=== PATIENT | male | born 1980 | race Caucasian/White ===

== ENCOUNTER 2017-07-29 17:37 | Inpatient (IN) | payer OTHER ==
[~2017-07-29] VITALS: Ht 180.3 cm; Wt 106.6 kg
--- NOTE | 2017-07-29 18:03 | ED INFLUENZA/URI COMPLAINT ---
History of Present Illness General Chief Complaint: Fever Stated Complaint: FEVER, CHILLS +N, X 4 DAY Source: patient, old records Exam Limitations: no limitations Vital Signs & Intake/Output Vital Signs & Intake/Output Vital Signs Date Time Temp Pulse Resp B/P B/P Pulse O2 O2 Flow FiO2 Mean Ox Delivery Rate 07/30 2343 102.7 100 16 07/29 2116 101.4 98 18 129/79 93 Room Air 07/29 2100 101.9 07/29 2029 100.9 07/29 2002 102.8 07/29 192 102.8 108 18 149/74 95 Room Air 07/29 185 Room Air 07/29 1853 97 07/29 175 102.7 99 15 133/93 95 Room Air Room Air Allergies Coded Allergies: Penicillins (UNKNOWN TOLD KID 07/29/17) Reconcile Medications Acetaminophen 500 MG TABLET 2 TAB PO Q2H PRN FEVER (Reported) Cetirizine HCl (Zyrtec) 10 MG TABLET 1 TAB PO DAILY ALLERGIES (Reported) Ibuprofen (Advil) 200 MG TABLET 2 TAB PO Q2H PRN FEVER (Reported) Triage Note: PT TO ED FOR C/C OF FEVERS NOT RELIEVED WITH TYLENOL AND MOTRIN. PT CAME BACK FROM [facility] ON THURSDAY AND FEVERS STARTED ON THURSDAY. PT UNSURE IF BIT BY ANY BUGS, BUT WAS RECENTLY IN [place] [facility]. DENIES SORE THROAT, ABD PAIN. REPORTS CHILLS, ACHES. WENT TO URGENT CARE YESTERDAY AND TESTED NEGATIVE FOR FLU. FEBRILE 102.7 IN TRIAGE. TAKEN TO ROOM 18 FROM TRIAGE. Triage Nurses Notes Reviewed? yes Onset: Abrupt Duration: day(s): (2), constant Timing: recent history Severity: moderate Severity Numbers: 6 Prior Episodes/Possible Cause: no prior episodes No Modifying Factors: none Associated Symptoms: cough HPI: 37-year-old male with no medical history presents to the ER for evaluation complaining of fevers chills as high as 105 for the past 2 days. He went to urgent care yesterday have blood work performed which she states was normal and was started on Tamiflu however is not taken it. He states he had a negative flu swab at that time. He does report to a nonproductive cough. The patient just returned from a cruise to [facility] 4 days ago. He was doing yard work outside her denies any known tick or insect bite. He states that the fevers have been breaking with Tylenol Motrin however they return. No sick contacts no nausea vomiting diarrhea abdominal pain urinary complaints rashes to the skin (Mark Jimenez) Past History Travel History Traveled to [place] past 21 day No Medical History Any Pertinent Medical History? 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 No (Mark Jimenez) Review of Systems Review of Systems Constitutional: Reports: see HPI, chills. Comments Review of systems: See HPI, All other systems negative. Constitutional, positive fever, no malaise no weight loss HEENT: no sore throat no congestion, no ear pain Cardiovascular: No chest pain , no palpitation Skin: no rashes, no change in skin Respiratory: No dyspnea positive cough no sputum no hemoptysis GI: No nausea no vomiting, no diarrhea, no bloating/constipation : No dysuria No hematuria, no frequency Muscle skeletal: No joint pain, no back pain, no neck pain, Neurologic: no headache Heme/endocrine: No bruising Immunology: No lymphadenopathy (Mark Jimenez) Physical Exam Physical Exam General Appearance: well developed/nourished, alert, awake Ears, Nose, Throat: normal ENT inspection Comments: Well-developed well-nourished patient in no apparent distress. Head/Face: Atraumatic, no maxillary/frontal sinus tenderness, no facial swelling Eyes: PERRL, EOMI, no conjunctival injection. No nystagmus Ear:External auditory canal and Tympanic membranes clear, no erythema, no FB. Nose: atraumatic.Normal inspection: No bleeding, no septal hematoma Throat: Moist mucous membranes.Pharynx normal. No pharyngeal erythema/exudate seen. No stridor/drooling or assymetry. No swelling or edema. Neck: Supple, no lymphadenopathy, FROM Back: FROM Cardiovascular: Regular rate and rhythms no murmur Respiratory: Chest nontender.There were no bony deformities, no asymmetry. No respiratory distress. Patient speaking in full complete sentences. Crackles right lung base Extremities: full range of motion Neuro: awake, alert, and oriented to person, place and time. There were no obvious focal neurologic abnormalities. Skin: Warm & dry;No appreciable rash on exposed skin Psych: Mood affect normal, normal memory normal judgment. Core Measures Sepsis Present: No Sepsis Focused Exam Completed? No (Matt GREENBERG,Mark) Progress Differential Diagnosis: influenza, pneumonia, pharyngitis, sinusitis, TICK BORN ILLNESS, TRAVELERS DIARRHEA, GASTROENTERITIS, BRONCHITIS Plan of Care: Orders Procedure Date/time Status Regular Diet 07/30 B Active CBC WITHOUT DIFFERENTIAL 07/30 599 Active BASIC ELECTROLYTES PLUS BUN&CR 07/30 599 Active TRC EVALUATION (GEN) 07/29 2344 Active Saline Lock 07/29 2344 Active Pathway - chart 07/29 2344 Active House Staff 07/29 2344 Active SPECIMEN TO BE OBTAINED 07/29 2344 Active Code Status 07/29 2344 Active URINE DRUGS OF ABUSE 07/29 231 Complete Patient Data 07/29 2299 Active Patient Data 07/29 2257 Active OXYGEN SETUP (GEN) 07/29 2124 Active Saline Lock 07/29 2124 Active Admit to inpatient 07/29 2124 Active Vital Signs 07/29 2124 Active Activity/Ambulation 07/29 2124 Active Code Status 07/29 2124 Complete Intake & Output 07/29 1854 Active CULTURE,URINE 07/30 1815 Active BLOOD CULTURE 07/30 1815 Active URINALYSIS 07/30 1815 Complete LYME TITRE 07/29 181 Active LACTIC ACID 07/29 181 Complete COMPREHENSIVE METABOLIC PANEL 07/29 181 Complete CBC WITHOUT DIFFERENTIAL 07/30 1815 Complete Lab Add-on Test 07/29 UNK Active VTE Mechanical Prophylaxis 07/29 UNK Active Vital Signs 07/29 UNK Active Intake & Output 07/29 UNK Active Activity/Ambulation 07/29 UNK Active Current Medications Sig/Tommie Start time Last Medication Dose Stop Time Status Admin Heparin Sodium 5,000 UNIT Q8 07/30 06 UNVr (Porcine) Acetaminophen 650 MG Q8P PRN 07/29 2344 UNVr (Tylenol) Azithromycin 500 MG ONCE ONE 07/29 2344 UNVr (Zithromax) 07/30 0044 Sodium Chloride 250 ML (Normal Saline 0.9%) Benzonatate 100 MG TID PRN 07/29 2344 UNVr (Tessalon Capsule) Ceftriaxone Sodium 1,000 MG ONCE ONE 07/29 2344 UNVr (Rocephin) 07/29 2345 Sodium Chloride 1,000 ML .Q10H 07/29 2344 UNVr (Normal Saline 0.9%) Sodium Chloride 1,000 ML ONCE ONE 07/29 2129 AC 07/29 (Normal Saline 0.9%) 07/30 Sodium Chloride 1,000 ML BOLUS ONE 07/29 2014 CAN (Normal Saline 0.9%) 07/29 2113 Laboratory Tests 07/29/172309: Urine Opiates Screen < 100, Methadone Screen < 40, Barbiturate Screen < 60, Ur Phencyclidine Scrn < 6.00, Amphetamines Screen < 100, U Benzodiazepines Scrn < 85, Urine Cocaine Screen < 50, Urine Cannabis Screen < 5.00, Urine Color YEL, Urine Clarity CLEAR, Urine pH 6.5, Ur Specific [place] 1.010, Urine Protein TRACE H, Urine Ketones TRACE H, Urine Nitrite NEG, Urine Bilirubin NEG, Urine Urobilinogen 0.2, Ur Leukocyte Esterase NEG, Ur Microscopic SEDIMENT EXAMINED, Urine RBC RARE, Urine WBC RARE, Ur Epithelial Cells RARE, Urine Mucus RARE, Urine Hemoglobin NEG, Urine Glucose NEG 07/29/172115: Lactic Acid Cancelled 07/29/171834: Anion Gap 12, Estimated GFR > 60, BUN/Creatinine Ratio 6.9 L, Glucose 112 H, Lactic Acid 1.7, Calcium 8.5, Total Bilirubin 0.6, AST 38, ALT 42, Alkaline Phosphatase 63, Total Protein 6.9, Albumin 4.0, Globulin 2.9, Albumin/Globulin Ratio 1.4, CBC w Diff NO MAN DIFF REQ, RBC 4.78, MCV 86.1, MCH 29.8, MCHC 34.6, RDW 13.1, MPV 10.6 H, Gran % 79.8 H, Lymphocytes % 8.2 L, Monocytes % 11.9 H , Eosinophils % 0.1, Basophils % 0, Absolute Granulocytes 4.3, Absolute Lymphocytes 0.4 L, Absolute Monocytes 0.6, Absolute Eosinophils 0, Absolute Basophils 0, Lyme Disease Antibody Pending Microbiology 07/29 2309 URINE ROUT: Urine Culture - RECD 07/29 1849 BLOOD: Blood Culture - RECD 07/29 1834 BLOOD: Blood Culture - RECD Labs ordered old records reviewed patient medicated with Toradol IV IV fluids. IV Tylenol azithromycin ordered discussed with patient his x-ray findings pending labs. Diagnostic Imaging: Viewed by Me: Radiology Read. Discussed w/RAD: Radiology Read. Radiology Impression: PATIENT: NIKO GUO PRESENT AGE: 37 PATIENT ACCOUNT NO: [id number] : 81 LOCATION: [facility] ORDERING PHYSICIAN: Mark GREENBERG SERVICE DATE: 07/29/17 EXAM TYPE: RAD - XRY- CHEST XRAY, TWO VIEWS EXAMINATION: XR CHEST CLINICAL INFORMATION: Cough, fever COMPARISON: None TECHNIQUE: 2 views of the chest were obtained. FINDINGS: There is right lower lobe airspace opacity consistent with pneumonia. Left lung and pleural spaces are clear. There is an azygos lobe and fissure incidentally noted. Normal heart size. Regional skeleton intact. IMPRESSION: Right lower lobe airspace opacity consistent with pneumonia. Recommend follow-up after treatment to confirm resolution. DICTATED BY: Niko Gracia MD DATE/TIME DICTATED:07/29 QUALITY ASSURANCE PRACTICE MANAGER:TORRI DATE/TIME TRANSCRIBED:07/29/171829 CONFIDENTIAL, DO NOT COPY WITHOUT APPROPRIATE AUTHORIZATION. <Electronically signed in Other Vendor System> SIGNED BY: Niko Gracia MD 07/29/171835 Initial ED EKG: none (Matt GREENBERG,Mark) Departure Departure Time of Disposition: 2127 Disposition: STILL A PATIENT Condition: Stable Clinical Impression Primary Impression: Pneumonia Secondary Impressions: Hypoxia Referrals: Santa BEAN,Eusebia James Additional Instructions: Levaquin as directed. Guaifensin with codeine for cough- this may make you drowsy. no driving or drinking alcohol while taking. Follow-up with primary care physician as discussed interchange Tylenol Motrin as you've been doing every 4 hours. Drink plenty of fluids rest. Return to the ER if fevers persist despite medication, your symptoms worsen or have any other concerns Departure Forms: Customer Survey General Discharge Information Admission Note Spoke With: Arturo BEAN,Johnchetan Documentation of Exam: Documentation of any treatments & extenuating circumstances including Concerns Regarding Discharge (functional status, medication knowledge or non-compliance, living conditions, etc.) that warrant an admission rather than observation: [ Patient desaturated with ambulation IV antibiotics GEN labs during cultures premature discharge medically harmful (Matt GREENBERG,Mark) PA/GRADUATE FELLOW Co-Sign Statement Statement: ED Attending supervision documentation- x I saw and evaluated the patient. I have also reviewed all the pertinent lab results and diagnostic results. I agree with the findings and the plan of care as documented in the PA's/GRADUATE FELLOW's documentation. Fever, SOB, hypoxia with pneumonia [] I have reviewed the ED Record and agree with the PA's/GRADUATE FELLOW's documentation. [] Additions or exceptions (if any) to the PAs/GRADUATE FELLOW's note and plan are summarized below: [] (Lisa BEAN,Gaurav)
--- NOTE | 2017-07-29 18:36 | RADIOLOGY REPORT ---
EXAMINATION: XR CHEST CLINICAL INFORMATION: Cough, fever COMPARISON: None TECHNIQUE: 2 views of the chest were obtained. FINDINGS: There is right lower lobe airspace opacity consistent with pneumonia. Left lung and pleural spaces are clear. There is an azygos lobe and fissure incidentally noted. Normal heart size. Regional skeleton intact. IMPRESSION: Right lower lobe airspace opacity consistent with pneumonia. Recommend follow-up after treatment to confirm resolution.
[2017-07-29 19:02] LABS: ABSOLUTE BASOPHIL COUNT 0 /CUMM (0.0-0.2); ABSOLUTE EOSINOPHIL COUNT 0 /CUMM (0.0-0.7); ABSOLUTE GRANULOCYTE CT 4.3 /CUMM (1.4-6.5); ABSOLUTE LYMPH COUNT 0.4 /CUMM (1.2-3.4); ABSOLUTE MONOCYTE COUNT 0.6 /CUMM (0.10-0.60); BASOPHIL % 0 % (0.0-2.0); EOSINOPHIL % 0.1 % (0-5); GRANULOCYTE % 79.8 % (42.2-75.2); HEMATOCRIT 41.1 % (42-52); MEAN CORPUSCULAR HGB 29.8 PG (27.0-31.0); MEAN CORPUSCULAR HGB CONC 34.6 G/DL (33.0-37.0); MEAN CORPUSCULAR VOLUME 86.1 FL (80.0-94.0); MEAN PLATELET VOLUME 10.6 FL (7.4-10.4); PLATELET COUNT 137 /CUMM (130-400); RBC DISTRIBUTION WIDTH 13.1 % (11.5-14.5); RED BLOOD CELL CT 4.78 /CUMM (4.70-6.10); WHITE BLOOD CELL COUNT 5.4 /CUMM (4.8-10.8)
[2017-07-29] MEDS ORDERED: ACETAMINOPHEN500 M4 PO (21:43)
[2017-07-29] MEDS ORDERED: ZYRTEC10 M3 PO (21:43)
[2017-07-29] MEDS ORDERED: ADVIL200 M2 PO (21:44)
--- NOTE | 2017-07-29 22:43 | History & Physical ---
Maryellen Abbott 07/29/17 2242: General Information and HPI MD Statement: I have seen and personally examined JERAD GUO and documented this H&P. The patient is a 37 year old M who presented with a patient stated chief complaint of [fever]. Source of Information: patient, old records Exam Limitations: no limitations History of Present Illness: Mr. Guo is a 37yo M w/ no PMH presented to ER with fever/chills with T-max 105 starting Thursday, along with body aches, and productive cough of brownish sputum. Patient was seen in urgent care yesterday with normal blood work, and was given Tamiflu, however he did not take it. Patient stated his flu swab was negative at the urgent care. Patient also endorsed nonproductive cough, and he just returned from a cruise to [place] 4 days ago. Patient was doing yard work outside however denied any tick/insect bites. Patient try Tylenol/Motrin over the past 4 days to take the fever away, however not effective with recurring fever/chills. Patient denies any sick contacts and stated the trip was uneventful and nobody else was sick like him. He endorsed some SOB starting yesterday as well. Patient had no past medical history, and rarely sees doctors. Patient does not have any PCP. During our clinical interaction, patient denied lightheadedness/diaphoresis/ night sweat/weight change/Chest Pain/Palpitation/Abdominal pain/bowel movement or urinary abnormality, or other skin/musculoskeletal/neurological/mood disorders, or dietary/appetite change. -Smoking: never -Alcohol: social -Rec Drugs: never Allergies/Medications Allergies: Coded Allergies: Penicillins (UNKNOWN TOLD KID 07/29/17) Home Med list Acetaminophen 500 MG TABLET 2 TAB PO Q2H PRN FEVER (Reported) Cetirizine HCl (Zyrtec) 10 MG TABLET 1 TAB PO DAILY ALLERGIES (Reported) Ibuprofen (Advil) 200 MG TABLET 2 TAB PO Q2H PRN FEVER (Reported) Past History Travel History Traveled to [place] past 21 day No Medical History Neurological: NONE EENT: NONE Cardiovascular: NONE Respiratory: NONE Gastrointestinal: NONE Hepatic: NONE Renal: NONE Musculoskeletal: NONE Psychiatric: NONE Endocrine: NONE Blood Disorders: NONE Cancer(s): NONE 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 Exam & Diagnostic Data Last 24 Hrs of Vital Signs/I&O Vital Signs Date Time Temp Pulse Resp B/P B/P Pulse O2 O2 Flow FiO2 Mean Ox Delivery Rate 07/29 2116 101.4 98 18 129/79 93 Room Air 07/29 2100 101.9 07/29 2029 100.9 07/29 2002 102.8 07/29 1921 102.8 108 18 149/74 95 Room Air 07/29 1853 Room Air 07/29 1853 97 07/29 175 102.7 99 15 133/93 95 Room Air Room Air Physical Exam General Appearance Alert, Oriented X3, Cooperative, No Acute Distress Skin No Rashes, No Breakdown, No Significant Lesion Skin Temp/Moisture Exam: Warm/Dry Sepsis Skin Exam (color): Normal for Ethnicity HEENT Atraumatic, PERRLA Neck Supple, No JVD Lymphatic Axillary nl, Cervical nl Cardiovascular Normal S1, Normal S2, tachycardia Lungs diminished lung sound on R lung base,otherwise clear Abdomen Normal Bowel Sounds, Soft, No Tenderness Neurological Normal Speech, Strength at 5/5 X4 Ext Extremities No Edema, Normal Pulses Last 24 Hrs of Labs/Brett: Laboratory Tests 07/29/172115: Lactic Acid Cancelled 07/29/171834: Anion Gap 12, Estimated GFR > 60, BUN/Creatinine Ratio 6.9 L, Glucose 112 H, Lactic Acid 1.7, Calcium 8.5, Total Bilirubin 0.6, AST 38, ALT 42, Alkaline Phosphatase 63, Total Protein 6.9, Albumin 4.0, Globulin 2.9, Albumin/Globulin Ratio 1.4, CBC w Diff NO MAN DIFF REQ, RBC 4.78, MCV 86.1, MCH 29.8, MCHC 34.6, RDW 13.1, MPV 10.6 H, Gran % 79.8 H, Lymphocytes % 8.2 L, Monocytes % 11.9 H , Eosinophils % 0.1, Basophils % 0, Absolute Granulocytes 4.3, Absolute Lymphocytes 0.4 L, Absolute Monocytes 0.6, Absolute Eosinophils 0, Absolute Basophils 0, Lyme Disease Antibody Pending Microbiology 07/29 1849 BLOOD: Blood Culture - RECD 07/29 1834 BLOOD: Blood Culture - RECD 07/30 1815 URINE ROUT: Urine Culture - ORD Assessment/Plan Assessment: On admission, -CBC: No leukocytosis, granulocytes 79.8%, no bandemia -BMP: Unremarkable except creatinine 1.3, with a previous baseline. -CXR: Right lower lobe airspace opacity consistent with pneumonia. -EKG: NSR w/o significant ST-T abnormalities. -Interventions in ER: IV fluids 2 L, Toradol, acetaminophen IV 1, azithromycin Problem list & Assessment: #Sepsis 2/2 Community-acquired pneumonia (Tachycardia, Fever, Source of Infection) #CHRIS secondary to dehydration Hospital Course: - Admit to general medicine floor pneumonia. Patient has ongoing allergy to penicillin from childhood, without any known rash/anaphylactic/shortness of breath. Patient's memory. We will closely monitor use of ceftriaxone during treatment course. including Toradol. possible Legionella pending rule out) DVT prophylaxis Heparin + ALPS Regular Diet Full Code As Ranked By This Provider Problem List: 1. Pneumonia 2. Hypoxia Core Measures/Misc (11/23) Acute Coronary Syndrome ACS Diagnosis: No Congestive Heart Failure Congestive Heart Failure Diagnosis No Cerebrovascular Accident CVA/TIA Diagnosis: No VTE (View Protocol) VTE Risk Factors Age>40 No Mechanical VTE Prophylaxis d/t N/A MechProphylax Ordered No VTE Pharm Prophylaxis d/t NA PharmProphylax ordered Sepsis (View protocol) Sepsis Present: Yes If YES complete Sepsis Event Note If YES complete Sepsis Event Note Mo [address] 07/29/17 4051: Core Measures/Misc (11/23) Sepsis (View protocol) If YES complete Sepsis Event Note If YES complete Sepsis Event Note Resident Review Statement Resident Statement: examined this patient, discussed with validation intern Other Findings: Mr Guo is a 37 M w/ a no significant PMHx came to the ER w/ a chief concern of fever. He went to [place] on a cruise ship for a total of 7 days and returned approximately 1 week ago. The trip was uneventful, and did not have any nausea vomiting or diarrhea. Did not report any fever, signs of any infection. A few days after he returned, approximately 6 days ago, he developed fever of 103 associated with myalgias. He also reported chills and productive cough that began 1 day after he developed chills. He has been taking Tylenol around the clock, and did not attribute any particular pattern to these chills. Did not have any joint pains, rash, pedal edema. No abdominal pain, diarrhea, jaundice or vomiting noted. No dysuria. No dyspnea, palpitations or chest pain noted. He works at [employer], and does not have any history of intravenous drug use. No pertinent family history reported. At the time of admission, temp 102.7, VT 99, RR 15, BP 133/93, 95% on room air. He continued to be febrile while he was in the ED. While he ambulated, his oxygen saturations dropped to 86%. General Exam: AAOx3, No acute distress, Skin: No rashes, no breakdown;HEENT: PERRLA, EOMI;Neck: Supple, No JVD; No cervical lymphadenopathy;CVS: Reg Rate, Normal S1,S2, No MGR;Resp: Decreased air entry on the right side, no ronchi/ rales;Abdomen: Soft, No tenderness, Normal Bowel Sounds;Neuro: Normal Speech, Strength 5/5 b/l x 4 extremities, Sensation intact, CN III-XII NL, Reflexes 2+; Extremities: No cyanosis, no pedal edema. Pertinent lab findings: WBC 5.4, hemoglobin 14.2, platelets 137, sodium 141, potassium 4.1, anion gap 12, BUN 9, creatinine 1.3 (likely a TIA), lactic acid 1.7, liver function-AST 38, ALT 42, alkaline phosphatase 63, urinalysis revealed trace urine protein, trace ketones, urine lites pending. Urine toxicology negative. Chest x-ray revealed- Right lower lobe airspace opacity consistent with pneumonia. Recommend follow-up after treatment to confirm resolution. Etiology in his case with signs of infection- tachycardia, fever with possible source being lung-sepsis could be considered. He likely has community-acquired pneumonia. His travels to [place], could point towards atypical pneumonia, but community acquired pneumonia seems more likely in this case. He should be treated with ceftriaxone and azithromycin to cover for usual microbes. In the event he continues to be febrile, and has cultures growing other microbes- antibiotic should be tailored. In regards to his acute kidney injury, he has elevated serum creatinine, but normal or slightly less than normal BUN, which could be due to things-decreased by mouth intake, and or rhabdomyolysis, acute kidney injury from dehydration seems more likely in this case. Problem list: #1 community acquired pneumonia #2 acute kidney injury #3 sepsis Plan: #1 community acquired pneumonia-he should be treated with ceftriaxone and azithromycin. Follow lower respiratory cultures, blood cultures. Check urine Legionella and strep antigen. #2 acute kidney injury- Check urine lites Fluid resuscitation at this time. NS @100ml/hr. Recheck kidney function in the a.m. He was given NSAID in the ER, which should be avoided for now. No NSAIDS. If the kidney function does not improve, would likely have to get ultrasound kidney. Housekeeping: #1 DVT prophylaxis-subcutaneous heparin, Alps. #2 diet-regular diet. #3 full code. Consults-none. Arturo BEAN, [facility] 07/30/17 0209: Core Measures/Misc (11/23) Sepsis (View protocol) If YES complete Sepsis Event Note If YES complete Sepsis Event Note Attending MD Review Statement Attending Statement Attending MD Statement: examined this patient, discuss w/resident/PA/SHOE COVERER, agreed w/resident/PA/SHOE COVERER, discussed with family, reviewed images, amended to note Attending Assessment/Plan: 37 yo M with h/o seasonal allergies, who returned one week ago from a 5-day cruise trip to [place], is here for evaluation of persistent fever. Patient started developing high grade fevers (up to 104) two days after returning from the cruise trip. He was seen at a [facility], tested negative on flu swab and was prescribed Tamiflu which he did not take. He was taking tylenol round the clock. He felt better in between and reports doing yard work over the weekend. At that point, his right hand middle finger swelled up without any evidence of tick or insect bite. This resolved in 2 days. He reports chills, myalgias, nausea and poor appetite, but no vomiting or diarrhea. One day prior to admission, he developed a cough productive of yellow-brown phlegm. Today, he was reported to have a fever of 104, hence brought him to the ER. Vitals: Tmax 103.1, HR 90-100's, BP 129/79, sats 93% RA. On ambulation, he dropped his sats to 86% on RA. Exam: AAO, ill-appearing male, skin warm and dry, capillary refill ~ 2 secs, dry mucous membranes, Chest reduced air entry at right base, no rhonchi or crackles, otherwise benign exam. No obvious skin rash. Labs: no leukocytosis, creat 1.3 (no baseline), BUN 9, glucose 112, lactic acid 1.7, UA and urine tox negative. CXR: right lower lobe airspace opacity consistent with pneumonia. Assessment and plan: 1. Acute hypoxic respiratory failure 2. Sepsis 3. Right lower lobe pneumonia community acquired 4. CHRIS likely pre-renal 5. Seasonal allergies - Admit to General medicine - Panculture - Urine legionella and strep Ag - IV ceftriaxone and azithro - TRC nebs - IV hydration, trend lactic acid - Add robitussin PRN for cough - Trend renal functions, check CK - Lyme titers pending - Consider ID consult if persistent fevers - Recheck ambulatory O2 sats prior to discharge DVT ppx Hep SC. Full code.
--- NOTE | 2017-07-29 23:19 | Admission Certification ---
Admission Certification Certification Statement - As attending physician, I certify that at the time of - admission, based on clinical presentation, severity of - symptoms, need for further diagnostic testing and - therapeutic interventions, and risk of adverse outcomes - without in-hospital treatment, in my clinical assessment, - this patient requires an acute hospital stay for a minimum - of two nights or longer. I have also considered psychsocial - factors such as support system, advanced age, financial - issues, cognitive issues, and failed out-patient treatments, - past re-admission history, safety of patient, and lack of - compliance as applicable. Specific rationale supporting this admission is: Acute hypoxic respiratory failure, sepsis, right lower lobe pneumonia.
[2017-07-30 01:40] VITALS: BP 168/82
[2017-07-30 06:01] VITALS: BP 144/76
--- NOTE | 2017-07-30 09:10 | PN- Housestaff ---
Subjective Follow-up For: pneumonia Subjective: Patient seen and examined. He denies any diaphoresis, chills but does admit to doing feverish. He denies any cough, sore throat, myalgias, joint pains, shortness of breath, chest pain, abdominal pain, diarrhea, nausea, vomiting. Review of Systems Constitutional: Reports: fever. EENTM: Reports: no symptoms. Cardiovascular: Reports: no symptoms. Respiratory: Reports: no symptoms. Gastrointestinal: Reports: no symptoms. Genitourinary: Reports: no symptoms. Musculoskeletal: Reports: no symptoms. Skin: Reports: no symptoms. Neurological/Psychological: Reports: no symptoms. Objective Last 24 Hrs of Vital Signs/I&O Vital Signs Date Time Temp Pulse Resp B/P B/P Pulse O2 O2 Flow FiO2 Mean Ox Delivery Rate 07/30 1702 98.2 07/30 1538 Room Air 07/30 1453 99.1 07/30 1434 99.0 100 20 120/70 93 Room Air 07/30 1256 99.0 07/30 1157 101.7 07/30 1136 101.7 07/30 1052 101.7 07/30 1044 103.0 07/30 0953 103.0 07/30 0914 Room Air 07/30 0805 102.4 07/30 0805 102.4 07/30 0800 Room Air 07/30 0710 102.5 07/30 0601 103.8 99 18 144/76 93 Room Air 07/30 0352 102.2 07/30 0250 102.2 07/30 0151 103.1 07/30 0140 103.1 100 20 168/82 94 Room Air 07/30 0132 94 Nasal Cannula 07/29 2344 102.7 100 16 07/29 2117 101.4 98 18 129/79 93 Room Air 07/29 2101 101.9 07/29 2030 100.9 07/29 2003 102.8 07/29 1922 102.8 108 18 149/74 95 Room Air 07/29 1854 Room Air 07/29 1854 97 Intake & Output 07/30 1600 07/30 0800 07/30 0000 Intake Total 1280 1750 3730 Output Total 550 Balance 1280 1200 3730 Intake, IV 413 800 2047 Intake, Oral 480 1200 480 Number 0 Bowel Movements Output, Urine 550 Patient 230 lb 230 lb Weight Weight Reported by Patient Reported by Patient Measurement Method Physical Exam General Appearance: Alert, Oriented X3, Cooperative, No Acute Distress Skin: No Rashes, No Breakdown, No Significant Lesion Skin Temp/Moisture Exam: Warm/Dry Sepsis Skin Exam (color): Normal for Ethnicity HEENT: Atraumatic, PERRLA, EOMI, Mucous Membr. moist/pink Cardiovascular: Regular Rate, Normal S1, Normal S2, No Murmurs Lungs: Clear to Auscultation, Normal Air Movement Abdomen: Normal Bowel Sounds, Soft, No Tenderness Neurological: Normal Gait, Normal Speech Extremities: No Clubbing, No Cyanosis, No Edema, Normal Pulses Vascular: Normal Pulses, Pulses Symmetrical Current Medications: Current Medications Sig/Tommie Start time Last Medication Dose Route Stop Time Status Admin Acetaminophen 650 MG .STK-MED ONE 07/30 0949 DC PO 07/30 0950 Acetaminophen 650 MG .STK-MED ONE 07/30 0150 DC PO 07/30 0151 Acetaminophen 650 MG Q8P PRN 07/29 2345 AC 07/30 PO 0953 Acetaminophen 0 .STK-MED ONE 07/29 1936 DC IV Acetaminophen 1,000 MG ONCE ONE 07/29 1930 DC 07/29 N/A 1 UNIT IV 07/29 1942002 Azithromycin 500 MG 07/30 2000 AC Sodium Chloride 250 ML IV Azithromycin 500 MG ONCE ONE 07/29 2345 CAN Sodium Chloride 250 ML IV 07/30 0044 Azithromycin 500 MG ONCE ONE 07/29 1900 DC 07/29 Sodium Chloride 250 ML IV 07/29 1959 2009 Benzonatate 100 MG TID PRN 07/29 2345 DC PO 08/01 2344 Ceftriaxone Sodium 1,000 MG 2300 07/30 2300 AC IV Ceftriaxone Sodium 0 .STK-MED ONE 07/30 0004 DC .ROUTE Ceftriaxone Sodium 1,000 MG ONCE ONE 07/29 2345 DC 07/29 IV 07/29 2346 2359 Guaifenesin 10 ML Q6P PRN 07/30 0445 AC PO Heparin Sodium 5,000 UNIT Q8 07/30 0600 AC (Porcine) SC Ibuprofen 600 MG Q6P PRN 07/30 1130 AC PO Ibuprofen 600 MG ONCE ONE 07/30 1015 DC 07/30 PO 07/30 1016 1157 Ketorolac 0 .STK-MED ONE 07/29 1906 DC Tromethamine .ROUTE Ketorolac 30 MG ONCE ONE 07/29 1830 DC 07/29 Tromethamine IV 07/29 1831 1858 Sodium Chloride 1,000 ML .Q10H 07/29 2345 AC 07/30 IV 0435 Sodium Chloride 1,000 ML ONCE ONE 07/29 2130 DC 07/29 IV 07/30 0409 2200 Sodium Chloride 1,000 ML BOLUS ONE 07/29 2015 CAN IV 07/29 2114 Sodium Chloride 1,000 ML BOLUS ONE 07/29 1830 DC 07/29 IV 07/29 192 1858 Sodium Chloride 1,000 ML BOLUS ONE 07/29 1830 DC 07/29 IV 07/29 192 185 Tuberculin PPD 0.1 ML ONCE ONE 07/30 0745 DC 07/30 ID 07/30 0746 1014 Last 24 Hrs of Lab/Brett Results Last 24 Hrs of Labs/Mics: Laboratory Tests 07/30/17 1740: PT Pending, INR Pending, APTT Pending, Fibrinogen Activity Pending, D-Dimer High Sensitivty Pending, HIV 1&2 Ab Western Blot Pending 07/30/17 0604: Anion Gap 11, Estimated GFR > 60, BUN/Creatinine Ratio 5.8 L, CBC w Diff NO MAN DIFF REQ, RBC 3.96 L, MCV 85.5, MCH 30.0, MCHC 35.1, RDW 12.9, MPV 11.1 H, Gran % 69.7, Lymphocytes % 14.6 L, Monocytes % 15.5 H, Eosinophils % 0, Basophils % 0.2, Absolute Granulocytes 3.6, Absolute Lymphocytes 0.7 L, Absolute Monocytes 0.8 H, Absolute Eosinophils 0, Absolute Basophils 0 07/29/17 2310: Urine Color YEL, Urine Clarity CLEAR, Urine pH 6.5, Ur Specific [place] 1.010, Urine Protein TRACE H, Urine Ketones TRACE H, Urine Nitrite NEG, Urine Bilirubin NEG, Urine Urobilinogen 0.2, Ur Leukocyte Esterase NEG, Ur Microscopic SEDIMENT EXAMINED, Urine RBC RARE, Urine WBC RARE, Ur Epithelial Cells RARE, Urine Mucus RARE, Urine Hemoglobin NEG, Urine Glucose NEG 07/29/17 2310: Urine Opiates Screen < 100, Methadone Screen < 40, Barbiturate Screen < 60, Ur Phencyclidine Scrn < 6.00, Amphetamines Screen < 100, U Benzodiazepines Scrn < 85, Urine Cocaine Screen < 50, Urine Cannabis Screen < 5.00, Ur Random Creatinine 125.7, Ur Random Sodium 25 L, Ur Random Potassium 21.9, Fraction Sodium Excret 0.2 07/29/172115: Lactic Acid Cancelled 07/29/171834: Anion Gap 12, Estimated GFR > 60, BUN/Creatinine Ratio 6.9 L, Glucose 112 H, Lactic Acid 1.7, Calcium 8.5, Total Bilirubin 0.6, AST 38, ALT 42, Alkaline Phosphatase 63, Creatine Kinase 95, Total Protein 6.9, Albumin 4.0, Globulin 2.9 , Albumin/Globulin Ratio 1.4, CBC w Diff NO MAN DIFF REQ, RBC 4.78, MCV 86.1, MCH 29.8, MCHC 34.6, RDW 13.1, MPV 10.6 H, Gran % 79.8 H, Lymphocytes % 8.2 L , Monocytes % 11.9 H, Eosinophils % 0.1, Basophils % 0, Absolute Granulocytes 4.3, Absolute Lymphocytes 0.4 L, Absolute Monocytes 0.6, Absolute Eosinophils 0 , Absolute Basophils 0, Lyme Disease Antibody 0.27 Microbiology 07/30 734 LOWER RESP: AFB Culture with PCR Identification - COLB 07/30 734 LOWER RESP: AFB Culture with PCR Identification - COLB 07/30 734 LOWER RESP: AFB Culture with PCR Identification - COLB 07/30 734 LOWER RESP: AFB Smear Concentration - COLB 07/29 2309 URINE ROUT: Legionella Antigen - COMP 07/29 2309 URINE ROUT: Streptococcus pneumoniae Antigen (M - COMP 07/29 2309 URINE ROUT: Urine Culture - RES 07/29 1849 BLOOD: Blood Culture - RES 07/29 1834 BLOOD: Blood Culture - RES Assessment/Plan Assessment: Mr. Rios is a 37yo M w/ no PMH presented to ER with fever/chills with T-max 105 starting Thursday, along with body aches, and productive cough of brownish sputum. Patient was seen in urgent care yesterday with normal blood work, and was given Tamiflu, however he did not take it. Patient stated his flu swab was negative at the urgent care. Patient also endorsed nonproductive cough, and he just returned from a cruise to [facility] 4 days ago. Patient was doing yard work outside however denied any tick/insect bites. Patient try Tylenol/Motrin over the past 4 days to take the fever away, however not effective with recurring fever/chills. Patient denies any sick contacts and stated the trip was uneventful and nobody else was sick like him. He endorsed some SOB starting yesterday as well. Patient had no past medical history. Patient does not have any PCP. On admission, -CBC: No leukocytosis, granulocytes 79.8%, no bandemia -BMP: Unremarkable except creatinine 1.3, with a previous baseline. -CXR: Right lower lobe airspace opacity consistent with pneumonia. -EKG: NSR w/o significant ST-T abnormalities. -Interventions in ER: IV fluids 2 L, Toradol, acetaminophen IV 1, azithromycin Problem list & Assessment: #Sepsis 2/2 Community-acquired pneumonia (Tachycardia, Fever TODAY 103, Source of Infection) #CHRIS secondary to dehydration -thrombocytopenia Hospital Course: - Admit to general medicine floor pneumonia. Patient has ongoing allergy to penicillin from childhood, without any known rash/anaphylactic/shortness of breath. Patient's memory. We will closely monitor use of ceftriaxone during treatment course. -hiv test as well as TB for his continued fever, history of travel (although not to endemic area for TB). Patient denies any sexual partners other than . patient does not exhibit typical features of dengue or chickenguya -We will also send coags and dic panel for thrombocytopenia. TODAY FOR FEVER WITH RESULTING 99.1 TEMP. DVT prophylaxis Heparin + ALPS Regular Diet Full Code Problem List: 1. Pneumonia Pain Ratin Pain Location: na Pain Goal: Remain pain free Pain Plan: prn Tomorrow's Labs & Rationales: bep cbc
[2017-07-30 09:26] LABS: ABSOLUTE BASOPHIL COUNT 0 /CUMM (0.0-0.2); ABSOLUTE EOSINOPHIL COUNT 0 /CUMM (0.0-0.7); ABSOLUTE GRANULOCYTE CT 3.6 /CUMM (1.4-6.5); ABSOLUTE LYMPH COUNT 0.7 /CUMM (1.2-3.4); ABSOLUTE MONOCYTE COUNT 0.8 /CUMM (0.10-0.60); BASOPHIL % 0.2 % (0.0-2.0); EOSINOPHIL % 0 % (0-5); GRANULOCYTE % 69.7 % (42.2-75.2); MEAN CORPUSCULAR HGB CONC 35.1 G/DL (33.0-37.0); MEAN CORPUSCULAR VOLUME 85.5 FL (80.0-94.0); MEAN PLATELET VOLUME 11.1 FL (7.4-10.4); PLATELET COUNT 127 /CUMM (130-400); RBC DISTRIBUTION WIDTH 12.9 % (11.5-14.5); RED BLOOD CELL CT 3.96 /CUMM (4.70-6.10); WHITE BLOOD CELL COUNT 5.1 /CUMM (4.8-10.8)
[2017-07-30 10:37] LABS: HEMATOCRIT 33.9 % (42-52)
--- NOTE | 2017-07-30 12:18 | PN- Att Addend ---
Attending Addendum Attending Brief Note Patient seen and examined. Plan of care discussed with the medical team and the patient. Available lab work and radiology test reports were reviewed. Patient' s is having persistent fever up to 103. He otherwise appears comfortable and denies any chills chest pain or hemoptysis. Denies any skin rash or joint pains. History was reviewed with the patient and his Exam: General: Patient awake alert oriented without any distress CVS: S1 plus S2 without any murmur or gallops Chest: Bronchial breathing at the left base , Few scattered crepitation without any wheeze. There is no respiratory distress. 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 without any focal neuro deficit and follows commands appropriately Extremities: No edema; no clubbing or cyanosis noted; no skin rash noted and no joint inflammation noted Assessment * Community-acquired pneumonia - deferential included viral pneumonia versus bacterial; * Persistent fever- patient does not exhibit typical features of dengue or chickenguya * Thrombocytopenia * Acute renal failure Plan * Recheck CBC tomorrow * Await culture reports * Continue ceftriaxone and azithromycin * Check coags and DIC panel * check HIV status Current Medications Sig/Tommie Start time Last Medication Dose Route Stop Time Status Admin Acetaminophen 650 MG .STK-MED ONE 07/30 0150 DC PO 07/30 0151 Acetaminophen 650 MG Q8P PRN 07/29 2345 AC 07/30 PO 0953 Acetaminophen 0 .STK-MED ONE 07/29 1936 DC IV Acetaminophen 1,000 MG ONCE ONE 07/29 1930 DC 07/29 N/A 1 UNIT IV 07/29 1944 2002 Azithromycin 500 MG 07/30 2000 AC Sodium Chloride 250 ML IV Azithromycin 500 MG ONCE ONE 07/29 2345 CAN Sodium Chloride 250 ML IV 07/30 0044 Azithromycin 500 MG ONCE ONE 07/29 1900 DC 07/29 Sodium Chloride 250 ML IV 07/29 1959 2010 Benzonatate 100 MG TID PRN 07/29 2345 DC PO 08/01 2344 Ceftriaxone Sodium 1,000 MG 2300 07/30 2300 AC IV Ceftriaxone Sodium 0 .STK-MED ONE 07/30 0004 DC .ROUTE Ceftriaxone Sodium 1,000 MG ONCE ONE 07/29 2345 DC 07/29 IV 07/29 2346 2359 Guaifenesin 10 ML Q6P PRN 07/30 0445 AC PO Heparin Sodium 5,000 UNIT Q8 07/30 0600 AC (Porcine) SC Ibuprofen 600 MG Q6P PRN 07/30 1130 AC PO Ibuprofen 600 MG ONCE ONE 07/30 1015 DC 07/30 PO 07/30 1016 1157 Ketorolac 0 .STK-MED ONE 07/29 1906 DC Tromethamine .ROUTE Ketorolac 30 MG ONCE ONE 07/29 1830 DC 07/29 Tromethamine IV 07/29 1831 1858 Sodium Chloride 1,000 ML .Q10H 07/29 2345 AC 07/30 IV 0435 Sodium Chloride 1,000 ML ONCE ONE 07/29 2130 DC 07/29 IV 07/30 0409 2200 Sodium Chloride 1,000 ML BOLUS ONE 07/29 2015 CAN IV 07/29 2114 Sodium Chloride 1,000 ML BOLUS ONE 07/29 1830 DC 07/29 IV 07/29 1929 1858 Sodium Chloride 1,000 ML BOLUS ONE 07/29 1830 DC 07/29 IV 07/29 1929 1858 Tuberculin PPD 0.1 ML ONCE ONE 07/30 0745 DC 07/30 ID 07/30 0746 1014 Laboratory Tests 07/30/17 0604: Anion Gap 11, Estimated GFR > 60, BUN/Creatinine Ratio 5.8 L, CBC w Diff NO MAN DIFF REQ, RBC 3.96 L, MCV 85.5, MCH 30.0, MCHC 35.1, RDW 12.9, MPV 11.1 H, Gran % 69.7, Lymphocytes % 14.6 L, Monocytes % 15.5 H, Eosinophils % 0, Basophils % 0.2, Absolute Granulocytes 3.6, Absolute Lymphocytes 0.7 L, Absolute Monocytes 0.8 H, Absolute Eosinophils 0, Absolute Basophils 0 07/29/17 2310: Urine Color YEL, Urine Clarity CLEAR, Urine pH 6.5, Ur Specific [place] 1.010, Urine Protein TRACE H, Urine Ketones TRACE H, Urine Nitrite NEG, Urine Bilirubin NEG, Urine Urobilinogen 0.2, Ur Leukocyte Esterase NEG, Ur Microscopic SEDIMENT EXAMINED, Urine RBC RARE, Urine WBC RARE, Ur Epithelial Cells RARE, Urine Mucus RARE, Urine Hemoglobin NEG, Urine Glucose NEG 07/29/17 2310: Urine Opiates Screen < 100, Methadone Screen < 40, Barbiturate Screen < 60, Ur Phencyclidine Scrn < 6.00, Amphetamines Screen < 100, U Benzodiazepines Scrn < 85, Urine Cocaine Screen < 50, Urine Cannabis Screen < 5.00, Ur Random Creatinine 125.7, Ur Random Sodium 25 L, Ur Random Potassium 21.9, Fraction Sodium Excret 0.2 07/29/172115: Lactic Acid Cancelled 07/29/17 1835: Anion Gap 12, Estimated GFR > 60, BUN/Creatinine Ratio 6.9 L, Glucose 112 H, Lactic Acid 1.7, Calcium 8.5, Total Bilirubin 0.6, AST 38, ALT 42, Alkaline Phosphatase 63, Creatine Kinase 95, Total Protein 6.9, Albumin 4.0, Globulin 2.9 , Albumin/Globulin Ratio 1.4, CBC w Diff NO MAN DIFF REQ, RBC 4.78, MCV 86.1, MCH 29.8, MCHC 34.6, RDW 13.1, MPV 10.6 H, Gran % 79.8 H, Lymphocytes % 8.2 L , Monocytes % 11.9 H, Eosinophils % 0.1, Basophils % 0, Absolute Granulocytes 4.3, Absolute Lymphocytes 0.4 L, Absolute Monocytes 0.6, Absolute Eosinophils 0 , Absolute Basophils 0, Lyme Disease Antibody 0.27 Microbiology 07/30 734 LOWER RESP: AFB Culture with PCR Identification - COLB 07/30 734 LOWER RESP: AFB Culture with PCR Identification - COLB 07/30 734 LOWER RESP: AFB Culture with PCR Identification - COLB 07/30 734 LOWER RESP: AFB Smear Concentration - COLB 07/29 2354 URINE ROUT: Legionella Antigen - COLB 07/29 2354 URINE ROUT: Streptococcus pneumoniae Antigen (M - COLB 07/29 231 URINE ROUT: Urine Culture - RES 07/29 185 BLOOD: Blood Culture - RECD 07/29 1834 BLOOD: Blood Culture - REC Vital Signs Date Time Temp Pulse Resp B/P B/P Pulse O2 O2 Flow FiO2 Mean Ox Delivery Rate 07/30 1157 101.7 07/30 1136 101.7 07/30 1052 101.7 07/30 1044 103.0 07/30 0953 103.0 07/30 0914 Room Air 07/30 0805 102.4 07/30 0805 102.4 07/30 0800 Room Air 07/30 0710 102.5 07/30 0601 103.8 99 18 144/76 93 Room Air 07/30 0352 102.2 07/30 0250 102.2 07/30 0151 103.1 07/30 0140 103.1 100 20 168/82 94 Room Air 07/30 0132 94 Nasal Cannula 07/29 2344 102.7 100 16 07/29 2117 101.4 98 18 129/79 93 Room Air 07/29 2101 101.9 07/29 2030 100.9 07/29 2002 102.8 07/29 1922 102.8 108 18 149/74 95 Room Air 07/29 1854 Room Air 07/29 1854 97 07/29 1752 102.7 99 15 133/93 95 Room Air Room Air Intake & Output 07/30 1600 07/30 0800 07/30 0000 Intake Total 1750 3730 Output Total 550 Balance 1200 3730 Intake, IV 550 3250 Intake, Oral 1200 480 Output, Urine 550 Patient 230 lb 230 lb Weight Weight Reported by Patient Reported by Patient Measurement Method
[2017-07-30 14:34] VITALS: BP 120/70
[2017-07-30 19:15] LABS: PT 13.5 SEC (9.4-12.5); PTT 30 SEC (25-37)
[2017-07-30 22:31] VITALS: BP 122/80
[2017-07-31 06:31] VITALS: BP 116/80
--- NOTE | 2017-07-31 08:12 | PN- Housestaff ---
Subjective Follow-up For: Intractable fever Pneumonia Subjective: Patient continues to have intractable fever today. He was also noted to have a mildly elevated INR. He was also noted to have low platelets. The patient continues to have cough nonproductive as well. He also notes that he's had 4-5 watery bowel movements over the last day. He is very eager to go home. Review of Systems Constitutional: Reports: fever. EENTM: Reports: no symptoms. Cardiovascular: Reports: no symptoms. Respiratory: Reports: cough. Gastrointestinal: Reports: diarrhea. Genitourinary: Reports: no symptoms. Musculoskeletal: Reports: no symptoms. Skin: Reports: no symptoms. Neurological/Psychological: Reports: no symptoms. Objective Last 24 Hrs of Vital Signs/I&O Vital Signs Date Time Temp Pulse Resp B/P B/P Pulse O2 O2 Flow FiO2 Mean Ox Delivery Rate 07/31 1658 99.5 07/31 1608 102.8 07/31 1553 102.8 07/31 1455 99.9 95 20 100/60 95 07/31 1453 102.2 07/31 1136 100.4 07/31 1134 100.4 07/31 1022 101.8 07/31 1015 101.8 07/31 1000 101.8 07/31 0857 101.3 07/31 0800 Room Air 07/31 0631 98.9 84 18 116/80 94 Room Air 07/31 0134 99.3 07/31 0133 99.3 07/31 0000 Room Air 07/30 2231 98.6 89 18 122/80 94 Room Air 07/30 1948 100.9 07/30 1921 101.7 07/30 1920 101.7 07/30 1835 100.1 Intake & Output 07/31 1600 07/31 0800 07/31 0000 Intake Total 1420 1280 540 Output Total Balance 1420 1280 540 Intake, IV 200 800 300 Intake, Oral 1220 480 240 Number 3 0 0 Bowel Movements Patient 235 lb Weight Weight Bed scale Measurement Method Physical Exam General Appearance: Alert, Oriented X3, Cooperative, No Acute Distress Skin: No Rashes, No Breakdown, No Significant Lesion Skin Temp/Moisture Exam: Warm/Dry Sepsis Skin Exam (color): Normal for Ethnicity HEENT: Atraumatic, EOMI, Mucous Membr. moist/pink Neck: Supple Cardiovascular: Regular Rate, Normal S1, Normal S2, No Murmurs Lungs: Clear to Auscultation, Normal Air Movement Abdomen: Normal Bowel Sounds, Soft, No Tenderness, No Hepatospenomegaly, No Masses Neurological: Normal Speech Extremities: No Clubbing, No Cyanosis, No Edema, Normal Pulses, No Tenderness/ Swelling Vascular: Normal Pulses, Pulses Symmetrical Sepsis Peripheral Pulse Location: Radial Current Medications: Current Medications Sig/Tommie Start time Last Medication Dose Route Stop Time Status Admin Acetaminophen 650 MG .STK-MED ONE 07/31 0849 DC PO 07/31 0850 Acetaminophen 650 MG .STK-MED ONE 07/31 0130 DC PO 07/31 0131 Acetaminophen 650 MG Q6-PRN PRN 07/30 2045 AC 07/31 PO 1453 Acetaminophen 650 MG Q8P PRN 07/29 2345 DC 07/30 PO 1921 Azithromycin 500 MG 07/30 DC 07/30 Sodium Chloride 250 ML IV 2024 Benzonatate 100 MG TID 07/31 0958 AC 07/31 PO 1151 Ceftriaxone Sodium 1,000 MG 2300 07/30 2300 AC 07/30 IV 2254 Doxycycline Hyclate 100 MG BID 07/31 2100 AC PO Guaifenesin 600 MG Q12 07/31 0958 AC 07/31 PO 1151 Guaifenesin 10 ML .STK-MED ONE 07/31 0854 DC PO 07/31 0855 Guaifenesin 10 ML Q6P PRN 07/30 0445 DC 07/31 PO 0856 Heparin Sodium 5,000 UNIT Q8 07/30 0600 AC (Porcine) SC Ibuprofen 600 MG Q6P PRN 07/30 1130 AC 07/31 PO 1608 Lactobacillus 1 CAP DAILY 07/31 1343 AC 07/31 Acidophilus PO 1456 Patient Medication 1 ED ONE ONE 07/31 0900 DC Teaching ED 07/31 0901 Phytonadione 10 MG ONCE ONE 07/31 1100 DC 07/31 PO 07/31 1101 1222 Sodium Chloride 1,000 ML .Q10H 07/29 2345 DC 07/31 IV 0134 Last 24 Hrs of Lab/Brett Results Last 24 Hrs of Labs/Mics: Laboratory Tests 07/31/17 0743: Anion Gap 10, Estimated GFR > 60, BUN/Creatinine Ratio 6.0 L, CBC w Diff NO MAN DIFF REQ, RBC 4.09 L, MCV 87.8, MCH 29.6, MCHC 33.7, RDW 13.4, MPV 10.9 H, Gran % 76.2 H, Lymphocytes % 10.8 L, Monocytes % 11.0 H, Eosinophils % 1.6, Basophils % 0.4, Absolute Granulocytes 4.0, Absolute Lymphocytes 0.6 L, Absolute Monocytes 0.6, Absolute Eosinophils 0.1, Absolute Basophils 0 07/31/17 0600: A.phagocytophil DNA PCR Pending 07/30/17 1740: PT 13.5 H, INR 1.24 H, APTT 30, Fibrinogen Activity 557 H, D-Dimer High Sensitivty 299 H, HIV 1&2 Ab Western Blot NONREACTIVE Microbiology 07/31 1310 LOWER RESP: Respiratory Culture - RES 07/31 1310 LOWER RESP: Gram Stain - RES 07/31 1258 LOWER RESP: AFB Culture with PCR Identification - ORD 07/31 1258 LOWER RESP: AFB Culture with PCR Identification - ORD 07/31 1258 LOWER RESP: AFB Culture with PCR Identification - ORD 07/31 1258 LOWER RESP: AFB Smear Concentration - ORD Assessment/Plan Assessment: Mr. Rios is a 37yo M w/ no PMH presented to ER with fever/chills with T-max 105 starting Thursday, along with body aches, and productive cough of brownish sputum. Patient was seen in urgent care yesterday with normal blood work, and was given Tamiflu, however he did not take it. Patient stated his flu swab was negative at the urgent care. Patient also endorsed nonproductive cough, and he just returned from a cruise to [facility] 4 days ago. Patient was doing yard work outside however denied any tick/insect bites. Patient try Tylenol/Motrin over the past 4 days to take the fever away, however not effective with recurring fever/chills. Patient denies any sick contacts and stated the trip was uneventful and nobody else was sick like him. He endorsed some SOB starting yesterday as well. Patient had no past medical history. Patient does not have any PCP. On admission, -CBC: No leukocytosis, granulocytes 79.8%, no bandemia -BMP: Unremarkable except creatinine 1.3, with a previous baseline. -CXR: Right lower lobe airspace opacity consistent with pneumonia. -EKG: NSR w/o significant ST-T abnormalities. -Interventions in ER: IV fluids 2 L, Toradol, acetaminophen IV 1, azithromycin Problem list & Assessment: #Sepsis 2/2 Community-acquired pneumonia (Tachycardia, Fever TODAY 103, Source of Infection) #CHRIS secondary to dehydration -thrombocytopenia Hospital Course: - Admit to general medicine floor room air pneumonia. Patient has ongoing allergy to penicillin from childhood, without any known rash/anaphylactic/shortness of breath. We will closely monitor use of ceftriaxone during treatment course. -Patient has continued fever, 4-5 watery bowel movements in the last day. We have consulted with ID who has suggested stopping azithro and starting doxy 100mg bid. This would cover atypical pneumonias and tick borne illness. continue ceftriaaxone but can stop if patient defervesces. -anaplasma pcr -follow up cxray to evaluate consolidation of the lung. -hiv test as well as TB for his continued fever, history of travel (although not to endemic area for TB). Patient denies any sexual partners other than . patient does not exhibit typical features of dengue or chickenguya -No evidence DIC TODAY FOR FEVER WITH RESULTING 99.1 TEMP. DVT prophylaxis Heparin + ALPS Regular Diet Full Code Problem List: 1. Hypoxia 2. Pneumonia 3. Fever Pain Ratin Pain Location: na Pain Goal: Remain pain free Pain Plan: na Tomorrow's Labs & Rationales: cbc bep
[2017-07-31 08:53] LABS: ABSOLUTE BASOPHIL COUNT 0 /CUMM (0.0-0.2); ABSOLUTE EOSINOPHIL COUNT 0.1 /CUMM (0.0-0.7); ABSOLUTE LYMPH COUNT 0.6 /CUMM (1.2-3.4); ABSOLUTE MONOCYTE COUNT 0.6 /CUMM (0.10-0.60); BASOPHIL % 0.4 % (0.0-2.0); EOSINOPHIL % 1.6 % (0-5); GRANULOCYTE % 76.2 % (42.2-75.2); HEMATOCRIT 35.9 % (42-52); MEAN CORPUSCULAR HGB 29.6 PG (27.0-31.0); MEAN CORPUSCULAR HGB CONC 33.7 G/DL (33.0-37.0); MEAN CORPUSCULAR VOLUME 87.8 FL (80.0-94.0); MEAN PLATELET VOLUME 10.9 FL (7.4-10.4); PLATELET COUNT 137 /CUMM (130-400); RBC DISTRIBUTION WIDTH 13.4 % (11.5-14.5); RED BLOOD CELL CT 4.09 /CUMM (4.70-6.10); WHITE BLOOD CELL COUNT 5.3 /CUMM (4.8-10.8)
--- NOTE | 2017-07-31 10:33 | PN- Att Addend ---
Attending Addendum Attending Brief Note Patient seen and examined. Plan of care discussed with the medical team and the patient. Available lab work and radiology test reports were reviewed. Patient had fever again today 101.3. He otherwise appears comfortable and denies any chills chest pain or hemoptysis. He complains of dry cough. Denies any skin rash or joint pains. Exam: General: Patient awake alert oriented without any distress CVS: S1 plus S2 without any murmur or gallops Chest: Few scattered crepitation without any wheeze. There is no respiratory distress. 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 On exam he does not have any lymphadenopathy. A flu test done in walk-in center was negative. * Thrombocytopenia- improved * Acute renal failure- resolved Plan * Continue ceftriaxone and azithromycin * ID consult * If clear by infectious disease patient can be discharged since patient is very eager to leave the hospital; Current Medications Sig/Tommie Start time Last Medication Dose Route Stop Time Status Admin Acetaminophen 650 MG .STK-MED ONE 07/31 0130 DC PO 07/31 0131 Acetaminophen 650 MG Q6-PRN PRN 07/30 2045 AC 07/31 PO 0857 Acetaminophen 650 MG Q8P PRN 07/29 2345 DC 07/30 PO 1921 Azithromycin 500 MG 07/30 AC 07/30 Sodium Chloride 250 ML IV 202 Benzonatate 100 MG TID 07/31 0958 AC PO Ceftriaxone Sodium 1,000 MG 2300 07/30 2300 AC 07/30 IV 2254 Guaifenesin 600 MG Q12 07/31 0958 AC PO Guaifenesin 10 ML Q6P PRN 07/30 0445 DC 07/31 PO 0856 Heparin Sodium 5,000 UNIT Q8 07/30 0600 AC (Porcine) SC Ibuprofen 600 MG Q6P PRN 07/30 1130 AC 07/31 PO 1022 Patient Medication 1 ED ONE ONE 07/31 0900 [facility] ED 07/31 0901 Sodium Chloride 1,000 ML .Q10H 07/29 2345 DC 07/31 IV 0134 Laboratory Tests 07/31/17 0743: Anion Gap 10, Estimated GFR > 60, BUN/Creatinine Ratio 6.0 L, CBC w Diff NO MAN DIFF REQ, RBC 4.09 L, MCV 87.8, MCH 29.6, MCHC 33.7, RDW 13.4, MPV 10.9 H, Gran % 76.2 H, Lymphocytes % 10.8 L, Monocytes % 11.0 H, Eosinophils % 1.6, Basophils % 0.4, Absolute Granulocytes 4.0, Absolute Lymphocytes 0.6 L, Absolute Monocytes 0.6, Absolute Eosinophils 0.1, Absolute Basophils 0 07/30/17 1740: PT 13.5 H, INR 1.24 H, APTT 30, Fibrinogen Activity 557 H, D-Dimer High Sensitivty 299 H, HIV 1&2 Ab Western Blot NONREACTIVE 07/30/17 0604: Anion Gap 11, Estimated GFR > 60, BUN/Creatinine Ratio 5.8 L, CBC w Diff NO MAN DIFF REQ, RBC 3.96 L, MCV 85.5, MCH 30.0, MCHC 35.1, RDW 12.9, MPV 11.1 H, Gran % 69.7, Lymphocytes % 14.6 L, Monocytes % 15.5 H, Eosinophils % 0, Basophils % 0.2, Absolute Granulocytes 3.6, Absolute Lymphocytes 0.7 L, Absolute Monocytes 0.8 H, Absolute Eosinophils 0, Absolute Basophils 0 07/29/17 2310: Urine Color YEL, Urine Clarity CLEAR, Urine pH 6.5, Ur Specific Jeannette 1.010, Urine Protein TRACE H, Urine Ketones TRACE H, Urine Nitrite NEG, Urine Bilirubin NEG, Urine Urobilinogen 0.2, Ur Leukocyte Esterase NEG, Ur Microscopic SEDIMENT EXAMINED, Urine RBC RARE, Urine WBC RARE, Ur Epithelial Cells RARE, Urine Mucus RARE, Urine Hemoglobin NEG, Urine Glucose NEG 07/29/17 2310: Urine Opiates Screen < 100, Methadone Screen < 40, Barbiturate Screen < 60, Ur Phencyclidine Scrn < 6.00, Amphetamines Screen < 100, U Benzodiazepines Scrn < 85, Urine Cocaine Screen < 50, Urine Cannabis Screen < 5.00, Ur Random Creatinine 125.7, Ur Random Sodium 25 L, Ur Random Potassium 21.9, Fraction Sodium Excret 0.2 07/29/172115: Lactic Acid Cancelled 07/29/171834: Anion Gap 12, Estimated GFR > 60, BUN/Creatinine Ratio 6.9 L, Glucose 112 H, Lactic Acid 1.7, Calcium 8.5, Total Bilirubin 0.6, AST 38, ALT 42, Alkaline Phosphatase 63, Creatine Kinase 95, Total Protein 6.9, Albumin 4.0, Globulin 2.9 , Albumin/Globulin Ratio 1.4, CBC w Diff NO MAN DIFF REQ, RBC 4.78, MCV 86.1, MCH 29.8, MCHC 34.6, RDW 13.1, MPV 10.6 H, Gran % 79.8 H, Lymphocytes % 8.2 L , Monocytes % 11.9 H, Eosinophils % 0.1, Basophils % 0, Absolute Granulocytes 4.3, Absolute Lymphocytes 0.4 L, Absolute Monocytes 0.6, Absolute Eosinophils 0 , Absolute Basophils 0, Lyme Disease Antibody 0.27 Microbiology 07/30 734 LOWER RESP: AFB Culture with PCR Identification - COLB 07/30 734 LOWER RESP: AFB Culture with PCR Identification - COLB 07/30 734 LOWER RESP: AFB Culture with PCR Identification - COLB 07/30 734 LOWER RESP: AFB Smear Concentration - COLB 07/29 2309 URINE ROUT: Legionella Antigen - COMP 07/29 2309 URINE ROUT: Streptococcus pneumoniae Antigen (M - COMP 07/29 2309 URINE ROUT: Urine Culture - RES 07/29 185 BLOOD: Blood Culture - RES 07/29 1834 BLOOD: Blood Culture - RES Vital Signs Date Time Temp Pulse Resp B/P B/P Pulse O2 O2 Flow FiO2 Mean Ox Delivery Rate 07/31 1022 101.8 07/31 0857 101.3 07/31 0631 98.9 84 18 116/80 94 Room Air 07/31 0134 99.3 07/31 0133 99.3 07/31 0000 Room Air 07/30 2230 98.6 89 18 122/80 94 Room Air 07/30 1948 100.9 07/30 192 101.7 07/30 192 101.7 07/30 1834 100.1 07/30 1702 98.2 07/30 1538 Room Air 07/30 1453 99.1 07/30 1434 99.0 100 20 120/70 93 Room Air 07/30 1256 99.0 07/30 1157 101.7 07/30 1136 101.7 07/30 1052 101.7 07/30 1044 103.0 Intake & Output 07/31 1600 07/31 0800 07/31 0000 Intake Total 1280 540 Output Total Balance 1280 540 Intake, IV 800 300 Intake, Oral 480 240 Number 0 0 Bowel Movements Patient 235 lb Weight Weight Bed scale Measurement Method
[2017-07-31] MEDS ORDERED: GUAIFENESIN ER600 MG PO (10:58)
--- NOTE | 2017-07-31 10:59 | Patient Discharge Instructions ---
Discharge Instructions General Discharge Information You were seen/treated for: pneumonia Special Instructions: 1. please follow up with PCP in one week Diet Continue normal diet: Yes Activity Full Activity/No Limits: Yes Acute Coronary Syndrome Inclusion Criteria At DC or during hospital stay patient has or had the following: ACS DIAGNOSIS No Discharge Core Measures Meds if any: Prescribed or Continued at Discharge Meds if any: NOT Prescribed or Continued at Discharge Congestive Heart Failure Inclusion Criteria At DC or during hospital stay patient has or had the following: CHF DIAGNOSIS No Discharge Core Measures Meds if any: Prescribed or Continued at Discharge Meds if any: NOT Prescribed or Continued at Discharge Cerebrovascular accident Inclusion Criteria At DC or during hospital stay patient has or had the following: CVA/TIA Diagnosis No Discharge Core Measures Meds if any: Prescribed or Continued at Discharge Meds if any: NOT Prescribed or Continued at Discharge Venous thromboembolism Inclusion Criteria VTE Diagnosis No VTE Type NONE VTE Confirmed by (Test) NONE Discharge Core Measures - Per Current guidelines, there needs to be overlap - treatment for the first 5 days of Warfarin therapy. - If discharged on Warfarin prior to 5 days of - overlap therapy, the patient will need to be - assessed for post discharge needs including - *Post discharge parental anticoagulation - *Warfarin and/or parental anticoagulation education - *Follow up date to check INR post discharge At least 5 days overlap therapy as Inpatient No Meds if any: Prescribed or Continued at Discharge Note: Overlap Therapy is Warfarin and Anticoagulant Meds if any: NOT Prescribed or Continued at Discharge
--- NOTE | 2017-07-31 14:23 | Cons- Infect Disease ---
General Information and HPI Consulting Request Date of Consult: 07/31/17 Requested By: Khadijah BEAN,Dirk Reason for Consult: Fever/right lower lobe pneumonia Source of Information: patient, family History of Present Illness: This is a 37-year-old man with no significant past medical history who developed a fever up to 104 4 days prior to admission, beginning 2 days after returning from a 5 day cruise to [facility], associated with chills and a dry cough but no joint or muscle aches, shortness of breath or chest pain and not relieved with Tylenol and Motrin. On admission he was febrile to 102.8. Laboratory data revealed a white blood cell count of 5000, H&H 14 and 41, platelets 137,000, BUN /creatinine 9 and 1.3, with normal liver enzymes. Urinalysis rare RBC/rare WBCs. Chest x-ray revealed a right lower lobe airspace opacity. He was begun on Ceftriaxone and Azithromycin. He spiked up to 103.8 on July 30 and has remained febrile, though lower grade since then. He feels somewhat improved, with no new symptoms, but he continues to have a dry cough Allergies/Medications Allergies: Coded Allergies: Penicillins (UNKNOWN TOLD KID 07/29/17) Home Med List: Acetaminophen 500 MG TABLET 2 TAB PO Q2H PRN FEVER (Reported) Cetirizine HCl (Zyrtec) 10 MG TABLET 1 TAB PO DAILY ALLERGIES (Reported) Ibuprofen (Advil) 200 MG TABLET 2 TAB PO Q2H PRN FEVER (Reported) Past History Travel History Traveled to [place] past 21 day No Medical History Blood Transfusion Hx: No Neurological: NONE EENT: NONE Cardiovascular: NONE Respiratory: NONE Gastrointestinal: NONE Hepatic: NONE Renal: NONE Musculoskeletal: NONE Psychiatric: NONE Endocrine: NONE Blood Disorders: NONE 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 Home Services at Home: None Smoking Status: Never Smoked ETOH Use: occasional use Illicit Drug Use: denies illicit drug use Review of Systems Review of Systems All Other Systems: Reviewed and Negative Exam & Diagnostic Data Last 24 Hrs of Vital Signs/I&O Vital Signs Date Time Temp Pulse Resp B/P B/P Pulse O2 O2 Flow FiO2 Mean Ox Delivery Rate 07/31 1136 100.4 07/31 1134 100.4 07/31 1022 101.8 07/31 1015 101.8 07/31 1000 101.8 07/31 0857 101.3 07/31 0631 98.9 84 18 116/80 94 Room Air 07/31 0134 99.3 07/31 0133 99.3 07/31 0000 Room Air 07/30 2231 98.6 89 18 122/80 94 Room Air 07/30 1948 100.9 07/30 1921 101.7 07/30 1920 101.7 07/30 1835 100.1 07/30 1702 98.2 07/30 1538 Room Air 07/30 1453 99.1 07/30 1434 99.0 100 20 120/70 93 Room Air Intake & Output 07/31 1600 07/31 0800 07/31 0000 Intake Total 1280 540 Output Total Balance 1280 540 Intake, IV 800 300 Intake, Oral 480 240 Number 0 0 Bowel Movements Patient 235 lb Weight Weight Bed scale Measurement Method Physical Exam Other Physical Findings: He is awake and alert in no acute distress. T-max 103.8. Skin reveals no rash. HEENT exam is negative. Neck is supple with no adenopathy. Lungs decreased breath sounds at the right base. Heart regular rhythm with no murmur. Abdomen is soft, nontender with positive bowel sounds. Back no CVA tenderness. Extremities no cyanosis, clubbing or edema. Neuro is without focality. Last 24 Hours of Lab Results: Laboratory Tests 07/31 07/30 0743 1740 Chemistry Sodium (137 - 145 mmol/L) 143 Potassium (3.5 - 5.1 mmol/L) 4.4 Chloride (98 - 107 mmol/L) 107 Carbon Dioxide (22 - 30 mmol/L) 26 Anion Gap (5 - 16) 10 BUN (9 - 20 mg/dL) 6 L Creatinine (0.7 - 1.2 mg/dL) 1.0 Estimated GFR (>60 ml/min) > 60 BUN/Creatinine Ratio (7 - 25 %) 6.0 L Coagulation PT (9.4 - 12.5 SEC) 13.5 H INR (0.90 - 1.17) 1.24 H APTT (25 - 37 SEC) 30 Fibrinogen Activity (200 - 393 MG/DL) 557 H D-Dimer High Sensitivty (0 - 243 ng/ml) 299 H Hematology CBC w Diff NO MAN DIFF REQ WBC (4.8 - 10.8 /CUMM) 5.3 RBC (4.70 - 6.10 /CUMM) 4.09 L Hgb (14.0 - 18.0 G/DL) 12.1 L Hct (42 - 52 %) 35.9 L MCV (80.0 - 94.0 FL) 87.8 MCH (27.0 - 31.0 PG) 29.6 MCHC (33.0 - 37.0 G/DL) 33.7 RDW (11.5 - 14.5 %) 13.4 Plt Count (130 - 400 /CUMM) 137 MPV (7.4 - 10.4 FL) 10.9 H Gran % (42.2 - 75.2 %) 76.2 H Lymphocytes % (20.5 - 51.1 %) 10.8 L Monocytes % (1.7 - 9.3 %) 11.0 H Eosinophils % (0 - 5 %) 1.6 Basophils % (0.0 - 2.0 %) 0.4 Absolute Granulocytes (1.4 - 6.5 /CUMM) 4.0 Absolute Lymphocytes (1.2 - 3.4 /CUMM) 0.6 L Absolute Monocytes (0.10 - 0.60 /CUMM) 0.6 Absolute Eosinophils (0.0 - 0.7 /CUMM) 0.1 Absolute Basophils (0.0 - 0.2 /CUMM) 0 Serology HIV 1&2 Ab Western Blot (NONREACTIVE) NONREACTIVE Last 24 Hours of Brett Results: Blood cultures 2 July 29 negative Urine culture July 29 negative Urine strep pneumo antigen and Legionella antigen July 29 negative Sputum culture July 31 pending Diagnostic Data Recent Imaging Findings: Chest x-ray July 29 reveals a right lower lobe airspace opacity Assessment/Plan Assessment/Plan Impression: This is a 37-year-old man with no significant past medical history admitted on July 29 with a 4 day history of a fever with chills and a dry cough beginning 2 days after returning from a 5 day cruise to [facility], found on admission to be febrile to 102.8, with a normal white blood cell count and a borderline thrombocytopenia with a chest x-ray revealing a right lower lobe airspace opacity. His clinical picture is consistent with an atypical pneumonia, with a nonproductive cough and a normal white blood cell count. A tickborne infection, such as Anaplasma, could be considered this time of the year, particularly given his cough, which is often seen with this infection, and thrombocytopenia, though this would not explain the right lower lobe opacity. His fevers do appear to be lower grade and he feels somewhat improved suggesting a response to his current treatment, but his antibiotics could be adjusted pending further evaluation. Suggestion: 1. Would review peripheral smear for intracytoplasmic morulae (have requested of lab) 2. Serum for PCR for Anaplasma 3. Repeat chest x-ray if fevers persist 4. Discontinue Azithromycin 5. Begin Doxycycline 100 mg p.o. every 12 hours 6. Continue Ceftriaxone but, if he defervesces, can discontinue and treat with Doxycycline alone Angela Cardona MD will be covering over the weekend Consult Acknowledgment - Thank you for your consult request.
[2017-07-31 14:55] VITALS: BP 100/60
--- NOTE | 2017-07-31 18:21 | RADIOLOGY REPORT ---
EXAMINATION: XR PORTABLE CHEST CLINICAL INFORMATION: Cough. Fever. Presumptive diagnosis of pneumonia COMPARISON: 07/29/17 TECHNIQUE: Portable frontal view of the chest was obtained. FINDINGS: The extreme upper chest is excluded. Cardiac size is within normal limits. No mediastinal or hilar mass. There is a moderate size patchy area of consolidation in the right lower lung. This does not silhouette the hemidiaphragm. This is new or worsened. There is an azygos fissure. No consolidation in the left lung. No pneumothorax or significant pleural fluid. IMPRESSION: New or worsening moderate-sized right lung base pneumonia.
[2017-07-31 21:44] VITALS: BP 136/80
--- NOTE | 2017-08-01 05:58 | PN- Housestaff ---
Subjective Follow-up For: Pneumonia Subjective: Patient seen and examined. He was resting comfortably. Was at bedside during the evening hours. Patient was anxious to know the results of his chest x-ray and was expecting resolution on consolidation. However patient was explained that there might be some worsening of the chest x-ray and radiological resolution can take up to 4-6 weeks. MAXIMUM TEMPERATURE 101.6. Patient continues to be spiking fever despite the change of antibiotics. Yesterday patient had 3 bowel movements. Review of Systems Constitutional: Reports: see HPI. Objective Last 24 Hrs of Vital Signs/I&O Vital Signs Date Time Temp Pulse Resp B/P B/P Pulse O2 O2 Flow FiO2 Mean Ox Delivery Rate 08/01 0620 101.6 75 18 146/78 91 Room Air 08/01 0542 101.6 08/01 0215 99.6 07/31 2322 99.6 07/31 2223 100.1 07/31 2144 100.1 80 18 136/80 93 07/31 2103 100.1 07/31 1947 101.2 07/31 1658 99.5 07/31 1608 102.8 07/31 1553 102.8 07/31 1455 99.9 95 20 100/60 95 07/31 1453 102.2 07/31 1136 100.4 07/31 1134 100.4 07/31 1022 101.8 07/31 1015 101.8 07/31 1000 101.8 07/31 0857 101.3 07/31 0800 Room Air Intake & Output 08/01 0800 08/01 0000 07/31 1600 Intake Total 973 038 8318 Output Total Balance 658 155 9194 Intake, IV 20 10 200 Intake, Oral 319 561 2192 Number 3 Bowel Movements Physical Exam General Appearance: Alert, Oriented X3, Cooperative Cardiovascular: Normal S1, Normal S2 Abdomen: Normal Bowel Sounds, Soft, No Tenderness Neurological: Normal Speech Other Physical Findings: Lungs decreased breath sounds at the right base. Current Medications: Current Medications Sig/Tommie Start time Last Medication Dose Route Stop Time Status Admin Acetaminophen 325 MG .STK-MED ONE 08/01 1947 DC PO 07/31 1948 Acetaminophen 325 MG .STK-MED ONE 07/31 1944 DC PO 07/31 1945 Acetaminophen 650 MG .STK-MED ONE 07/31 1450 DC PO 07/31 1451 Acetaminophen 650 MG .STK-MED ONE 07/31 0849 DC PO 07/31 0850 Acetaminophen 650 MG Q6-PRN PRN 07/30 2045 AC 08/01 PO 0542 Azithromycin 500 MG 2000 07/31 1999 DC 07/30 Sodium Chloride 250 ML IV 202 Benzonatate 100 MG TID 07/31 0958 AC 07/31 PO 2007 Ceftriaxone Sodium 1,000 MG 2300 07/30 2300 AC 07/31 IV 2218 Doxycycline Hyclate 100 MG BID 07/31 2100 AC 07/31 PO 2008 Guaifenesin 600 MG Q12 07/31 0958 AC 07/31 PO 2009 Guaifenesin 10 ML .STK-MED ONE 07/31 0854 DC PO 07/31 0855 Guaifenesin 10 ML Q6P PRN 07/30 0445 DC 07/31 PO 0856 Heparin Sodium 5,000 UNIT Q8 07/30 0600 AC (Porcine) SC Ibuprofen 600 MG Q6P PRN 07/30 1130 AC 07/31 PO 2223 Lactobacillus 1 CAP DAILY 07/31 1343 AC 07/31 Acidophilus PO 1456 Patient Medication 1 ED ONE ONE 07/31 0900 DC Teaching ED 07/31 0901 Phytonadione 10 MG ONCE ONE 07/31 1100 DC 07/31 PO 07/31 1101 1222 Sodium Chloride 1,000 ML .Q10H 07/29 2345 DC 07/31 IV 0134 Last 24 Hrs of Lab/Brett Results Last 24 Hrs of Labs/Mics: Laboratory Tests 07/31/17 0743: Anion Gap 10, Estimated GFR > 60, BUN/Creatinine Ratio 6.0 L, CBC w Diff NO MAN DIFF REQ, RBC 4.09 L, MCV 87.8, MCH 29.6, MCHC 33.7, RDW 13.4, MPV 10.9 H, Gran % 76.2 H, Lymphocytes % 10.8 L, Monocytes % 11.0 H, Eosinophils % 1.6, Basophils % 0.4, Absolute Granulocytes 4.0, Absolute Lymphocytes 0.6 L, Absolute Monocytes 0.6, Absolute Eosinophils 0.1, Absolute Basophils 0 Microbiology 07/31 1310 LOWER RESP: Respiratory Culture - RES 07/31 1310 LOWER RESP: Gram Stain - RES 07/31 1258 LOWER RESP: AFB Culture with PCR Identification - COLB 07/31 1258 LOWER RESP: AFB Culture with PCR Identification - COLB 07/31 1258 LOWER RESP: AFB Culture with PCR Identification - COLB 07/31 1258 LOWER RESP: AFB Smear Concentration - COLB Assessment/Plan Assessment: Mr. Rios is a 37yo M w/ no PMH presented to ER with fever/chills with T-max 105 starting Thursday, along with body aches, and productive cough of brownish sputum. Patient was seen in urgent care yesterday with normal blood work, and was given Tamiflu, however he did not take it. Patient stated his flu swab was negative at the urgent care. Patient also endorsed nonproductive cough, and he just returned from a cruise to [place] 4 days ago. Patient was doing yard work outside however denied any tick/insect bites. Patient try Tylenol/Motrin over the past 4 days to take the fever away, however not effective with recurring fever/chills. Patient denies any sick contacts and stated the trip was uneventful and nobody else was sick like him. Problem list & Assessment: #Sepsis 2/2 Community-acquired pneumonia (Tachycardia, Fever TODAY 103, Source of Infection) #CHRIS secondary to dehydration- resolved -thrombocytopenia-resolved Hospital Course: room air -We have consulted with ID who has suggested stopping azithro and starting doxy 100mg bid. This would cover atypical pneumonias and tick borne illness. continue ceftriaaxone but can stop if patient defervesces. -HIV test negative, Lyme titer negative as well -Anaplasma pcr pending -TB test pending for his continued fever, history of travel (although not to endemic area for TB). -Patient denies any sexual partners other than . patient does not exhibit typical features of dengue or chickenguya -No evidence DIC DVT prophylaxis Heparin + ALPS Regular Diet Full Code Problem List: 1. Pneumonia 2. Fever Pain Ratin Pain Location: prn Pain Goal: Pain 4 or less Pain Plan: prn Tomorrow's Labs & Rationales: cbc
[2017-08-01 06:20] VITALS: BP 146/78
[2017-08-01 08:31] LABS: ABSOLUTE BASOPHIL COUNT 0 /CUMM (0.0-0.2); ABSOLUTE EOSINOPHIL COUNT 0.1 /CUMM (0.0-0.7); ABSOLUTE GRANULOCYTE CT 4.2 /CUMM (1.4-6.5); ABSOLUTE LYMPH COUNT 0.5 /CUMM (1.2-3.4); ABSOLUTE MONOCYTE COUNT 0.6 /CUMM (0.10-0.60); BASOPHIL % 0.1 % (0.0-2.0); EOSINOPHIL % 1.2 % (0-5); GRANULOCYTE % 78.5 % (42.2-75.2); HEMATOCRIT 35.7 % (42-52); MEAN CORPUSCULAR HGB 29.7 PG (27.0-31.0); MEAN CORPUSCULAR VOLUME 87.2 FL (80.0-94.0); MEAN PLATELET VOLUME 11.6 FL (7.4-10.4); PLATELET COUNT 157 /CUMM (130-400); RBC DISTRIBUTION WIDTH 13.1 % (11.5-14.5); RED BLOOD CELL CT 4.09 /CUMM (4.70-6.10); WHITE BLOOD CELL COUNT 5.4 /CUMM (4.8-10.8)
[2017-08-01] MEDS ORDERED: DOXYCYCLINE HY100 M2 PO ×2 (09:44→09:52)
--- NOTE | 2017-08-01 11:24 | PN- Att Addend ---
Attending Addendum Attending Brief Note Patient seen and examined. Plan of care discussed with the medical team and the patient. Available lab work and radiology test reports were reviewed. Patient had fever again today 101.6. He otherwise appears comfortable and denies any chills chest pain or hemoptysis. He complains of scant sputum production with cough. Denies any skin rash or joint pains. Exam: General: Patient awake alert oriented without any distress CVS: S1 plus S2 without any murmur or gallops Chest: Few scattered crepitation without any wheeze. There is no respiratory distress. Abdomen: Soft non-tender, bowel sound present, no guarding or rebound [employer]: Awake alert oriented without any focal neuro deficit and follows commands appropriately Extremities: No edema; no clubbing or cyanosis noted; no skin rash noted and no joint inflammation noted Assessment * Community-acquired pneumonia - deferential included viral pneumonia versus bacterial; given recent history of close travel is a risk for legionella * Persistent fever- patient does not exhibit typical features of dengue or [place]; his HIV status negative and he is not immunocompromised therefore CMV pneumonia would be low on the differential. On exam he does not have any lymphadenopathy. A flu test done in walk-in center was negative. * Thrombocytopenia- improved * Acute renal failure- resolved Plan * Continue doxycycline for total 10 days * Patient was advised to avoid sun exposure while he is on doxycycline * Patient was given a note for work; he go back to work on August 10 * Patient advised to return to emergency room if the continues to have fever or difficulty breathing. Current Medications Sig/Tommie Start time Last Medication Dose Route Stop Time Status Admin Acetaminophen 325 MG .STK-MED ONE 08/01 1947 DC PO 07/31 1948 Acetaminophen 325 MG .STK-MED ONE 07/31 1944 DC PO 07/31 1945 Acetaminophen 650 MG .STK-MED ONE 07/31 1450 DC PO 07/31 145 Acetaminophen 650 MG Q6-PRN PRN 07/30 2044 AC 08/01 PO 0542 Azithromycin 500 MG 07/30 Sodium Chloride 250 ML IV 2023 Benzonatate 100 MG TID 07/31 PO 0842 Ceftriaxone Sodium 1,000 MG 0 07/30 2300 AC 07/31 IV 221 Doxycycline Hyclate 100 MG BID 07/31 2100 08/01 PO 0842 Guaifenesin 600 MG Q12 07/31 0958 AC 08/01 PO 0842 Heparin Sodium 5,000 UNIT Q8 07/30 0600 AC (Porcine) SC Ibuprofen 600 MG Q6P PRN 07/30 1130 AC 07/31 PO 2223 Lactobacillus 1 CAP DAILY 07/31 1343 AC 08/01 [place] PO 0949 Laboratory Tests 08/01/17 0610: CBC w Diff NO MAN DIFF REQ, RBC 4.09 L, MCV 87.2, MCH 29.7, MCHC 34.0, RDW 13.1 , MPV 11.6 H, Gran % 78.5 H, Lymphocytes % 9.3 L, Monocytes % 10.9 H, Eosinophils % 1.2, Basophils % 0.1, Absolute Granulocytes 4.2, Absolute Lymphocytes 0.5 L, Absolute Monocytes 0.6, Absolute Eosinophils 0.1, Absolute Basophils 0 07/31/17 0743: Anion Gap 10, Estimated GFR > 60, BUN/Creatinine Ratio 6.0 L, CBC w Diff NO MAN DIFF REQ, RBC 4.09 L, MCV 87.8, MCH 29.6, MCHC 33.7, RDW 13.4, MPV 10.9 H, Gran % 76.2 H, Lymphocytes % 10.8 L, Monocytes % 11.0 H, Eosinophils % 1.6, Basophils % 0.4, Absolute Granulocytes 4.0, Absolute Lymphocytes 0.6 L, Absolute Monocytes 0.6, Absolute Eosinophils 0.1, Absolute Basophils 0 07/31/17 0600: A.phagocytophil DNA PCR Pending 07/30/17 1740: PT 13.5 H, INR 1.24 H, APTT 30, Fibrinogen Activity 557 H, D-Dimer High Sensitivty 299 H, HIV 1&2 Ab Western Blot NONREACTIVE 07/30/17 0604: Anion Gap 11, Estimated GFR > 60, BUN/Creatinine Ratio 5.8 L, CBC w Diff NO MAN DIFF REQ, RBC 3.96 L, MCV 85.5, MCH 30.0, MCHC 35.1, RDW 12.9, MPV 11.1 H, Gran % 69.7, Lymphocytes % 14.6 L, Monocytes % 15.5 H, Eosinophils % 0, Basophils % 0.2, Absolute Granulocytes 3.6, Absolute Lymphocytes 0.7 L, Absolute Monocytes 0.8 H, Absolute Eosinophils 0, Absolute Basophils 0 07/29/172309: Urine Color YEL, Urine Clarity CLEAR, Urine pH 6.5, Ur Specific [place] 1.010, Urine Protein TRACE H, Urine Ketones TRACE H, Urine Nitrite NEG, Urine Bilirubin NEG, Urine Urobilinogen 0.2, Ur Leukocyte Esterase NEG, Ur Microscopic SEDIMENT EXAMINED, Urine RBC RARE, Urine WBC RARE, Ur Epithelial Cells RARE, Urine Mucus RARE, Urine Hemoglobin NEG, Urine Glucose NEG 07/29/17 2310: Urine Opiates Screen < 100, Methadone Screen < 40, Barbiturate Screen < 60, Ur Phencyclidine Scrn < 6.00, Amphetamines Screen < 100, U Benzodiazepines Scrn < 85, Urine Cocaine Screen < 50, Urine Cannabis Screen < 5.00, Ur Random Creatinine 125.7, Ur Random Sodium 25 L, Ur Random Potassium 21.9, Fraction Sodium Excret 0.2 07/29/172115: Lactic Acid Cancelled 07/29/17 1835: Anion Gap 12, Estimated GFR > 60, BUN/Creatinine Ratio 6.9 L, Glucose 112 H, Lactic Acid 1.7, Calcium 8.5, Total Bilirubin 0.6, AST 38, ALT 42, Alkaline Phosphatase 63, Creatine Kinase 95, Total Protein 6.9, Albumin 4.0, Globulin 2.9 , Albumin/Globulin Ratio 1.4, CBC w Diff NO MAN DIFF REQ, RBC 4.78, MCV 86.1, MCH 29.8, MCHC 34.6, RDW 13.1, MPV 10.6 H, Gran % 79.8 H, Lymphocytes % 8.2 L , Monocytes % 11.9 H, Eosinophils % 0.1, Basophils % 0, Absolute Granulocytes 4.3, Absolute Lymphocytes 0.4 L, Absolute Monocytes 0.6, Absolute Eosinophils 0 , Absolute Basophils 0, Lyme Disease Antibody 0.27 Microbiology 07/31 1310 LOWER RESP: Respiratory Culture - RES 07/31 1310 LOWER RESP: Gram Stain - RES 07/31 1258 LOWER RESP: AFB Culture with PCR Identification - COLB 07/31 1258 LOWER RESP: AFB Culture with PCR Identification - COLB 07/31 1258 LOWER RESP: AFB Culture with PCR Identification - COLB 07/31 1258 LOWER RESP: AFB Smear Concentration - COLB 07/30 0735 LOWER RESP: AFB Culture with PCR Identification - CAN Cancelled: Cancelled via OE: Error 07/30 0735 LOWER RESP: AFB Smear Concentration - CAN Cancelled: Cancelled via OE: Error 07/29 2309 URINE ROUT: Legionella Antigen - COMP 07/29 2309 URINE ROUT: Streptococcus pneumoniae Antigen (M - COMP 07/29 2309 URINE ROUT: Urine Culture - COMP 07/29 1849 BLOOD: Blood Culture - RES 07/29 1834 BLOOD: Blood Culture - RES Vital Signs Date Time Temp Pulse Resp B/P B/P Pulse O2 O2 Flow FiO2 Mean Ox Delivery Rate 08/02 619 101.6 75 18 146/78 91 Room Air 08/01 0542 101.6 08/01 0215 99.6 07/31 2322 99.6 07/31 2223 100.1 07/31 2144 100.1 80 18 136/80 93 07/31 2103 100.1 07/31 1947 101.2 07/31 1658 99.5 07/31 1608 102.8 07/31 1553 102.8 07/31 1455 99.9 95 20 100/60 95 07/31 1453 102.2 07/31 1136 100.4 07/31 1134 100.4 Intake & Output 08/01 1600 08/01 0800 08/01 0000 Intake Total 260 490 Output Total Balance 260 490 Intake, IV 20 10 Intake, Oral 240 480 Total time spent in preparation for discharge plan, patient education, and CMR preparation was 35 minutes.
== END 2017-08-01 12:00 | DRG 195 ==
LOC: ERH 17:37 → ERHI 21:25 → 2NA 21:25 → ENRESERV 23:44 → 2NA 07-30 00:57 → ENPENDDIS 08-01 09:59 → 2NA 08-01 12:00
PROVIDERS: Internal Medicine Endocrinology, Diabetes & Metabolism; Physician Assistant Medical; Student in an Organized Health Care Education/Training Program
DX: J18.9 Pneumonia, unspecified organism (principal); R09.02 Hypoxemia; D69.6 Thrombocytopenia, unspecified; E86.0 Dehydration; Z88.0 Allergy status to penicillin
CPT/HCPCS: 2NAP; 84133; 84300; 86618; 87798; ERO; 36592; 71045; 71046; 80307; 81001; 82436; 82570; 87040; 87070; 87086; 87389; 87449; 87450; 96374; 96375; J0131; J0456; J0696; J1644; J1885; J7040